=== PATIENT | male | born 1965 | race Caucasian/White ===

== ENCOUNTER 2017-10-29 22:27 | Emergency (ER) | payer MEDICAID, SELFPAY ==
[2017-10-29 22:28] VITALS: BP 148/98; PULSE 77; RESP 16; TEMP 36.8; O2SAT 98; BMI 24.9
--- NOTE | 2017-10-29 22:37 | ED.RN ---
NO OLD EKG'S IN MUSE
--- NOTE | 2017-10-29 23:26 | RAD_ITS ---
STUDY: X-RAY CHEST REASON FOR EXAM: Male, 52 years old. Chest pain for 3 days. TECHNIQUE: PA and lateral chest. COMPARISON: None. FINDINGS: The lungs are clear and expanded. There is no demonstrated pleural abnormality. Normal size heart. Normal mediastinum and beka. Normal visualized pulmonary arteries. Normal visualized aortic arch and descending thoracic aorta. Normal visualized thoracic spine. Normal visualized ribs, clavicles, and shoulders. There is no demonstrated abnormality of the visualized soft tissue structures of the upper abdomen. RAD/Chest PA and Lateral IMPRESSION: Normal x-ray examination of the chest. Electronically Signed: Pablito Fowler MD at 0:53 EDT , Service support ,
--- NOTE | 2017-10-29 23:26 | EKG12_ITS ---
Test Reason : CP Blood Pressure : / mmHG Vent. Rate : 071 BPM Atrial Rate : 071 BPM P-R Int : 184 ms QRS Dur : 094 ms QT Int : 384 ms P-R-T Axes : 046 047 075 degrees QTc Int : 417 ms Normal sinus rhythm Normal ECG Confirmed by DIALLO DOWNS MD ([id number]), features editor JOEY WEST ([id number]) on 10/31/2017 3:02:57 PM Referred By: Confirmed By:DIALLO DOWNS MD
--- NOTE | 2017-10-29 23:30 | ED.DCSUM_ITS ---
- ER Visit Summary Date of Service: 10/29/17 Chief Complaint: [] Chest pain History of Present Illness: The patient is a 52 M waning of left-sided chest pain that started yesterday gradual onset at rest intermittent for a few seconds at a time. Feels like a tightness. It comes all day however. Associated with nothing specific. Occasionally gets some tingling in his left thumb that comes and goes over the last hour. No home treatment. His last stress test was last year and was normal per patient out of town. Never had a heart cath. He has 2 risk factors for heart disease including hypertension and smoking. He did take car drive 2 weeks ago but denies any leg pain or swelling in his legs. Physical Examination: Vital signs reviewed General: Well-nourished well-developed Head: Normocephalic atraumatic Eyes: Pupils equal round and reactive to light extraocular movements intact ENT: Ear canal obstructed with wax no hemotympanum no trauma Neck: Nontender full range of motion Cardiovascular: Regular rate rhythm no murmurs normal S1-S2 Respiratory: No distress clear to auscultation bilaterally chest nontender Abdomen: Soft nontender nondistended normal bowel sounds no masses Back: Nontender no CVA tenderness Extremities: Nontender active range of motion ?4 extremities no trauma Skin: Normal color no trauma Neuro alert oriented cranial nerves II through XII intact normal strength sensation reflexes Test Results: [] Emergency Department Course and Treatment: [] EKG shows sinus at 71 without ischemia. Lab work and chest x-ray obtained. Given oral aspirin. X-ray shows nothing acute. CBC normal. Chemistries normal except sodium 132. Troponin less than 0.01. Patient on reevaluation has no pain. His SILVER risk score is 0. His heart score is low risk. I feel he can follow-up. He is also given a referral to counseling center he recently lost his mom and has been going through a lot of stress. I offered him admission and stress test and he would like to follow-up given the fact that he is low risk. Understands the risk. Treatment Plan: [] Disposition: [] Impression: [] Chest pain resolved This note was generated with [employer] dictation software. It may contain incorrect words, spelling, and punctuation that were not noted in review of the chart prior to signing ED Disposition - Plan for ED Patient: Chief Complaint: Chest Pain Referrals: [facility] Doctor,Out of [Primary Care Provider] -
[2017-10-29] MEDS: Aspirin 81 MG TAB.CHEW 324 MG PO (23:58)
[2017-10-30 00:08] LABS: Absolute Lymphocyte Count 2.54 X10^3/ul (0.83-4.51); Absolute Neutrophil Count 4.1 X10^3/uL (2.0-7.7); Basophil# 0.04 X10^3/uL; Basophil% 0.5 % (0-1); Eosinophil# 0.22 X10^3/uL; Eosinophils% 2.8 % (0-5); Hematocrit 42.1 % (40-54); Hemoglobin 14.4 g/dl (13.0-16.5); Lymphocyte # 2.54 X10^3/ul (4.0); Lymphocyte % 32.5 % (19-41); Mean Corp Hgb Conc 34.2 g/gl (32-36); Mean Corpuscular Hgb 33.1 pg (27.0-32.0); Mean Corpuscular Volume 96.8 fL (80-94); Mean Platelet Vol. 9.9 fl (6.2-12.0); Monocyte# 0.86 X10^3/uL; Neutrophil # 4.12 X10^3/uL (2.7-7.7); Neutrophil % 52.8 % (47-70); Platelet Count 277 K/mm3 (150-450); RBC Distribution Width CV 12.9 % (11.6-14.6); RBC Distribution Width SD 45.1 fl (35.1-43.9); Red Blood Count 4.35 M/mm3 (4.6-6.2); White Blood Count 7.8 K/mm3 (4.4-11.0)
[2017-10-30 00:15] LABS: POSITIVE COUNT NO; POSITIVE DIFFERENTIAL NO; POSITIVE MORPHOLOGY NO
[2017-10-30 00:29] LABS: Anion Gap 5 (5-15); BUN 10 mg/dL (7-18); BUN/Creat Ratio 10.7 RATIO (10-20); Calcium,Total 8.7 mg/dL (8.5-10.1); Chloride 97 mmol/L (98-107); Creatinine, Serum 0.94 mg/dL (0.70-1.30); EST Glomerular Filtration Rate 89 mL/min (>60); Est Glom Filt Rate - Afr Amer 108 mL/min (>60); Estimated Creatinine Clearance 83.99 ml/min; Glucose 101 mg/dL (74-106); Potassium 3.8 mmol/L (3.5-5.1); Sodium Level 132 mmol/L (136-145)
--- NOTE | 2017-10-30 01:08 | ED.DEP ---
ED Disposition - Plan for ED Patient: Disposition: Home or Assisted Living Chief Complaint: Chest Pain Instructions: ED Chest Pain NonCardiac Referrals: [facility],Out of [Primary Care Provider] - Leonides Zamarripa MD [STAFF PHYSICIAN] - Counseling,Center [GROUP OF PHYSICIANS] -
[2017-10-30 01:29] VITALS: BP 120/85; PULSE 72; RESP 16; O2SAT 97
[2017-10-30 01:32] VITALS: BP 120/85; PULSE 72; RESP 16; O2SAT 97
== END 2017-10-30 01:33 | disposition home or self-care (01) ==
PROVIDERS: Emergency Provider Emergency Medicine
DX: R07.9 Chest pain, unspecified (principal); I10 Essential (primary) hypertension; K21.9 Gastro-esophageal reflux disease without esophagitis; F17.200 Nicotine dependence, unspecified, uncomplicated; Z79.899 Other long term (current) drug therapy
CPT/HCPCS: 71046; 80048; 84484; 85025; 93005; 99285; J7030; A4216